=== PATIENT | female | born 1990 | race Caucasian/White ===

== ENCOUNTER 2019-03-30 15:19 | Outpatient (CLI) | payer BC ==
--- NOTE | 2019-03-30 15:46 | RAD ---
2 views of the chest: 03/30/2019 COMPARISON: None HISTORY: Cough, shortness of breath FINDINGS: No pneumothorax or pleural fluid. No focal consolidation or alveolar edema. Heart and media stinal contours are unremarkable. IMPRESSION: No acute findings.
--- NOTE | 2019-03-30 15:47 | RAD ---
2 views cervical spine: 03/30/2019 COMPARISON: None HISTORY: Cough and shortness of breath FINDINGS: Epiglottis appears grossly unremarkable. No prevertebral soft tissue swelling. No radiopaqu e foreign body. Airway appears patent on frontal and lateral imaging. If symptoms persist, CT may be beneficial. IMPRESSION: No acute findings.
== END 2019-03-30 15:20 | disposition home or self-care (01) ==
LOC: BICRAD 15:19
PROVIDERS: ATTEND Physician Assistant
DX: R06.02 Shortness of breath (principal)
CPT/HCPCS: 36415; 70360; 71046; 80053; 84443; 85025; 85379

== ENCOUNTER 2020-04-18 13:35 | Outpatient (CLI) | payer BC ==
--- NOTE | 2020-04-18 13:57 | ULT ---
PELVIC ULTRASOUND: Transabdominal ultrasound of pelvis performed. INDICATION: Pelvic pain. FINDINGS: The uterus has a normal sonographic appearance and size. Endometrial stripe measured at 1.2 cm. Both ovaries identified. Color Doppler and spectral analysis demonstrates flow to both ovaries. Sma ll cyst in the left ovary is seen measuring approximately 2.0 cm. No free fluid. IMPRESSION: 1. Mild left ovarian cyst. 2. Pelvic ultrasound otherwise unremarkable. POS: AH
== END 2020-04-18 13:36 | disposition home or self-care (01) ==
LOC: BICULT 13:35
PROVIDERS: ATTEND Physician Assistant
DX: R10.2 Pelvic and perineal pain (principal); N83.202 Unspecified ovarian cyst, left side; Z97.5 Presence of (intrauterine) contraceptive device
CPT/HCPCS: 76856; 93976